=== PATIENT | male | born 1990 | race African-American/Black ===

== ENCOUNTER → 2017-01-03 | Outpatient (CLI) | payer OTHER ==
[~2017-01-03] MED LIST: GASTROGRAFIN SOLUTION 30ML (Q9963) As Ordered ONE; ISOVUE-370 76% 100ML VIAL (Q9967) As Ordered ONE
--- NOTE | 2017-01-03 14:29 | REP ---
CT of the abdomen and pelvis with IV and bowel contrast: There are no comparison studies. The visualized lung santa are unremarkable. The hepatic parenchyma, gallbladder, pancreas and spleen are normal size and unremarkable. The adrenals, kidneys and abdominal aorta are unremarkable. There is no bowel distension or obstruction. The mesentery is unremarkable. Pelvis: The appendix has a normal appearance. There is no ascites or adenopathy. The pelvic bowel loops are unremarkable. Impression: Essentially negative CT study of the abdomen and pelvis. Signed by Edwin Cantrell MD 01/03/2017 02:21 P
== END ==
LOC: M RAD 12:09
PROVIDERS: ATTEND Physician Assistant
DX: R10.84 Generalized abdominal pain (principal)

== ENCOUNTER → 2017-01-03 | Outpatient (CLI) | payer OTHER ==
--- NOTE | 2017-01-03 11:33 | REP ---
KUB: Two views presented. HISTORY: Abdomen pain. FINDINGS: Two supine films are presented. Comparison study May 27, 2015. Today's view show a normal bowel gas pattern. Flank stripes and psoas margins are intact. No large or small bowel dilation is seen. No pathologic calcification, mass or organomegaly seen. IMPRESSION: Negative KUB. Normal bowel gas pattern. Signed by Arnold Garcia MD 01/03/2017 02:18 P
[2017-01-03 12:32] LABS: MEAN CORPUSCULAR HEMOGLOBIN 29.2 pg (27.0-33.0); MEAN CORPUSCULAR HGB CONC 33.1 g/dl (32.0-36.5); MEAN CORPUSCULAR VOLUME 88.2 fl (80.0-96.0); RED CELL DISTRIBUTION WIDTH 13.2 % (11.5-14.5); WHITE BLOOD COUNT 6.6 10^3/uL (4.0-10.0)
[2017-01-03 12:40] LABS: CBCMD ORDERED? YES (YES)
[2017-01-03 12:56] LABS: BASOPHILS 1 % (0-4)
[2017-01-03 13:16] LABS: ALBUMIN 4.5 GM/DL (3.2-5.2); ALKALINE PHOSPHATASE 67 U/L (45-117); ALT/SGPT 28 U/L (12-78); AMYLASE 74 U/L (25-115); ANION GAP 8 MEQ/L (8-16); AST/SGOT 14 U/L (15-37); BILIRUBIN,TOTAL 0.5 MG/DL (0.2-1.0); BLOOD UREA NITROGEN 8 MG/DL (7-18); CALCIUM LEVEL 9.7 MG/DL (8.5-10.1); CARBON DIOXIDE LEVEL 28 MEQ/L (21-32); CHLORIDE LEVEL 106 MEQ/L (98-107); CREATININE FOR GFR 1.26 MG/DL (0.70-1.30); GLOMERULAR FILTRATION RATE > 60.0 (>60); GLUCOSE, FASTING 99 MG/DL (70-105); SODIUM LEVEL 142 MEQ/L (136-145); TOTAL PROTEIN 7.5 GM/DL (6.4-8.2)
== END ==
LOC: M WUC 10:57
PROVIDERS: ATTEND Physician Assistant
DX: R10.84 Generalized abdominal pain (principal)

== ENCOUNTER 2018-01-28 13:43 | Outpatient (RCR) | payer OTHER | END 2018-02-08 | LOC: M PT 13:43 | DX: Z98.890 Other specified postprocedural states (principal) ==

== ENCOUNTER → 2018-02-13 | Outpatient (REF) | payer OTHER ==
[2018-02-13 11:40] LABS: BASO % 0.5 % (0.0-1.0); EOS # 0.2 10^3/uL (0.0-0.50); HEMATOCRIT 41.7 % (42.0-52.0); HEMOGLOBIN 13.4 g/dl (13.5-17.5); IMMATURE GRANULOCYTE % 0.2 % (0-3.0); LYMPH # 2.2 10^3/uL (1.5-6.5); LYMPH % 34.7 % (24.0-44.0); MEAN CORPUSCULAR HEMOGLOBIN 28.3 pg (27.0-33.0); MEAN CORPUSCULAR HGB CONC 32.1 g/dl (32.0-36.5); MONO # 0.5 10^3/uL (0.0-0.8); MONO % 8.2 % (0.0-5.0); NEUTROPHILS # 3.4 10^3/uL (1.8-7.7); NEUTROPHILS % 53.4 % (36.0-66.0); PLATELET COUNT, AUTOMATED 306 10^3/uL (150-450); RED BLOOD COUNT 4.74 10^6/uL (4.30-6.10); RED CELL DISTRIBUTION WIDTH 12.9 % (11.5-14.5); WHITE BLOOD COUNT 6.3 10^3/uL (4.0-10.0)
[2018-02-13 12:01] LABS: ESTIMATED AVERAGE GLUCOSE 131 MG/DL (60-110); HEMOGLOBIN A1c 6.2 %
[2018-02-13 12:09] LABS: ALBUMIN 4.3 GM/DL (3.2-5.2); ALBUMIN/GLOBULIN RATIO 1.34 (1.00-1.93); ALKALINE PHOSPHATASE 84 U/L (45-117); ALT/SGPT 26 U/L (12-78); ANION GAP 7 MEQ/L (8-16); AST/SGOT 13 U/L (7-37); BLOOD UREA NITROGEN 16 MG/DL (7-18); CALCIUM LEVEL 9.4 MG/DL (8.5-10.1); CARBON DIOXIDE LEVEL 26 MEQ/L (21-32); CHLORIDE LEVEL 107 MEQ/L (98-107); CHOLESTEROL LEVEL 236 MG/DL (<200); CHOLESTEROL RISK RATIO 5.619 (<5); CREATININE FOR GFR 1.37 MG/DL (0.70-1.30); FREE T4 1.17 NG/DL (0.76-1.46); GLOMERULAR FILTRATION RATE > 60.0 (>60); GLUCOSE, FASTING 95 MG/DL (70-100); HDL CHOLESTEROL 42 MG/DL (>40); LDL CHOLESTEROL 166 MG/DL (<100); NON-HDL-C 194 MG/DL; POTASSIUM SERUM 4.1 MEQ/L (3.5-5.1); SODIUM LEVEL 140 MEQ/L (136-145); TOTAL PROTEIN 7.5 GM/DL (6.4-8.2); TRIGLYCERIDES LEVEL 142 MG/DL (<150)
== END ==
LOC: M SFHCCLAY 07:27
DX: Z13.1 Encounter for screening for diabetes mellitus (principal); E66.9 Obesity, unspecified; L74.510 Primary focal hyperhidrosis, axilla
CPT/HCPCS: 84443

== ENCOUNTER 2018-03-08 14:45 | Outpatient (RCR) | payer OTHER | END 2018-03-11 | LOC: M PT 14:45 | PROVIDERS: ATTEND Orthopaedic Surgery | DX: Z47.89 Encounter for other orthopedic aftercare (principal); Z98.890 Other specified postprocedural states ==

== ENCOUNTER 2018-03-25 14:45 | Outpatient (RCR) | payer OTHER | END 2018-04-11 | LOC: M PT 14:45 | PROVIDERS: ATTEND Orthopaedic Surgery | DX: Z51.89 Encounter for other specified aftercare (principal); Z98.890 Other specified postprocedural states ==

== ENCOUNTER 2018-04-26 13:49 | Outpatient (RCR) | payer OTHER | END 2018-05-09 | LOC: M PT 13:49 | PROVIDERS: ATTEND Orthopaedic Surgery | DX: Z51.89 Encounter for other specified aftercare (principal); Z47.89 Encounter for other orthopedic aftercare ==

== ENCOUNTER → 2018-05-17 | Outpatient (REF) | payer OTHER ==
[2018-05-17 12:08] LABS: HEMOGLOBIN A1c 5.7 %
[2018-05-17 12:26] LABS: BLOOD UREA NITROGEN 13 MG/DL (7-18); CARBON DIOXIDE LEVEL 23 MEQ/L (21-32); CHLORIDE LEVEL 108 MEQ/L (98-107); CHOLESTEROL LEVEL 216 MG/DL (<200); CHOLESTEROL RISK RATIO 5.268 (<5); CREATININE FOR GFR 1.18 MG/DL (0.70-1.30); GLOMERULAR FILTRATION RATE > 60.0 (>60); GLUCOSE, FASTING 101 MG/DL (70-100); HDL CHOLESTEROL 41 MG/DL (>40); LDL CHOLESTEROL 156 MG/DL (<100); NON-HDL-C 175 MG/DL; POTASSIUM SERUM 4.3 MEQ/L (3.5-5.1); SODIUM LEVEL 140 MEQ/L (136-145); TRIGLYCERIDES LEVEL 94 MG/DL (<150)
== END ==
LOC: M SFHCCLAY 07:59
PROVIDERS: ATTEND Nurse Practitioner Family
DX: R73.03 Prediabetes (principal); E78.49 Other hyperlipidemia

== ENCOUNTER 2018-05-24 14:39 | Outpatient (RCR) | payer OTHER ==
[2018-05-31] MEDS ORDERED: VIBE1TAB2 PO (17:44)
[2018-05-31] MEDS ORDERED: IBUP-1022 PO (18:54)
== END 2018-06-09 ==
LOC: M PT 14:39
PROVIDERS: ATTEND Physical Medicine & Rehabilitation Neuromuscular Medicine
DX: Z51.89 Encounter for other specified aftercare (principal); M54.12 Radiculopathy, cervical region

== ENCOUNTER 2018-05-31 17:37 | Emergency (ER) | payer OTHER ==
[~2018-05-31] VITALS: Ht 177.8 cm; Wt 110.5 kg
[2018-05-31 17:38] VITALS: BP 154/86
[2018-05-31] MEDS ORDERED: VIBE1TAB2 PO (17:44)
[2018-05-31] MEDS ORDERED: IBUP-1022 PO (18:54)
--- NOTE | 2018-05-31 21:59 | REP ---
LEFT SHOULDER, THREE VIEWS: There is no evidence of an acute fracture, dislocation or intrinsic bone disease. IMPRESSION: No fracture or dislocation. Electronically Signed by Edwin Shaffer MD 06/01/2018 06:46 P
== END 2018-05-31 19:14 | disposition home or self-care (01) ==
LOC: M ED 17:37
DX: S43.402A Unspecified sprain of left shoulder joint, initial encounter (principal); S40.012A Contusion of left shoulder, initial encounter; W19.XXXA Unspecified fall, initial encounter; Y92.149 Unspecified place in prison as the place of occurrence of the external cause; Y93.89 Activity, other specified; Y99.0 Civilian activity done for income or pay; K58.9 Irritable bowel syndrome, unspecified; Z79.899 Other long term (current) drug therapy; Z88.0 Allergy status to penicillin

== ENCOUNTER → 2018-09-23 | Outpatient (REF) | payer OTHER ==
[~2018-09-23] MED LIST changes: -GASTROGRAFIN SOLUTION 30ML (Q9963) As Ordered ONE; +IBUP-1022 PO; -ISOVUE-370 76% 100ML VIAL (Q9967) As Ordered ONE; +VIBE1TAB2 PO
[2018-09-23 17:12] LABS: BLOOD UREA NITROGEN 12 MG/DL (7-18); CARBON DIOXIDE LEVEL 25 MEQ/L (21-32); CHLORIDE LEVEL 107 MEQ/L (98-107); CHOLESTEROL LEVEL 217 MG/DL (<200); CHOLESTEROL RISK RATIO 4.254 (<5); CREATININE FOR GFR 1.27 MG/DL (0.70-1.30); GLOMERULAR FILTRATION RATE > 60.0 (>60); GLUCOSE, FASTING 94 MG/DL (70-100); HDL CHOLESTEROL 51 MG/DL (>40); LDL CHOLESTEROL 148 MG/DL (<100); NON-HDL-C 166 MG/DL; POTASSIUM SERUM 3.9 MEQ/L (3.5-5.1); SODIUM LEVEL 141 MEQ/L (136-145); TRIGLYCERIDES LEVEL 89 MG/DL (<150)
== END ==
LOC: M SFHCCLAY 12:48
PROVIDERS: ATTEND Nurse Practitioner Family
DX: R73.03 Prediabetes (principal); E78.49 Other hyperlipidemia

== ENCOUNTER → 2019-03-07 | Outpatient (REF) | payer OTHER ==
[2019-03-07 16:53] LABS: BLOOD UREA NITROGEN 13 MG/DL (7-18); CALCIUM LEVEL 9.5 MG/DL (8.5-10.1); CARBON DIOXIDE LEVEL 25 MEQ/L (21-32); CHLORIDE LEVEL 108 MEQ/L (98-107); CREATININE FOR GFR 1.19 MG/DL (0.70-1.30); GLOMERULAR FILTRATION RATE > 60.0 (>60); GLUCOSE, FASTING 82 MG/DL (70-100); POTASSIUM SERUM 4.2 MEQ/L (3.5-5.1); SODIUM LEVEL 140 MEQ/L (136-145)
[2019-03-07 17:27] LABS: HEMOGLOBIN A1c 5.9 %
== END ==
LOC: M SFHCCLAY 09:54
PROVIDERS: ATTEND Nurse Practitioner Family
DX: R73.03 Prediabetes (principal); E78.49 Other hyperlipidemia

== ENCOUNTER 2019-05-04 15:20 | Emergency (ER) | payer OTHER ==
[~2019-05-04] VITALS: Ht 180.3 cm; Wt 113.0 kg
[2019-05-04] MEDS ORDERED: GABA-843 (15:35)
[2019-05-04] MEDS ORDERED: RALTEGRAVIR 400 MG TAB (ISENTRESS) PO ONE (16:00)
[2019-05-04] MEDS ORDERED: EXPOSURE KIT-ADULT 7 DAY SUPPLY PO ONE (16:00)
[2019-05-04] MEDS ORDERED: TRUVADA 200MG/300MG TABLET PO ONE (16:00)
[2019-05-04 16:11] LABS: BASO % 0.4 % (0.0-1.0); EOS # 0.1 10^3/uL (0.0-0.5); EOS % 0.8 % (0.0-3.0); HEMATOCRIT 41.1 % (42.0-52.0); HEMOGLOBIN 13.6 g/dl (13.5-17.5); LYMPH # 2.3 10^3/uL (1.5-5.0); LYMPH % 22.1 % (24.0-44.0); MEAN CORPUSCULAR HEMOGLOBIN 28.8 pg (27.0-33.0); MEAN CORPUSCULAR HGB CONC 33.1 g/dl (32.0-36.5); MEAN CORPUSCULAR VOLUME 86.9 fl (80.0-96.0); MONO # 0.7 10^3/uL (0.0-0.8); MONO % 6.4 % (0.0-5.0); NEUTROPHILS # 7.4 10^3/uL (1.5-8.5); NEUTROPHILS % 70.1 % (36.0-66.0); PLATELET COUNT, AUTOMATED 351 10^3/uL (150-450); RED BLOOD COUNT 4.73 10^6/uL (4.30-6.10); WHITE BLOOD COUNT 10.6 10^3/uL (4.0-10.0)
[2019-05-04 16:33] LABS: ALBUMIN 4.5 GM/DL (3.2-5.2); ALT/SGPT 38 U/L (12-78); BILIRUBIN,TOTAL 0.5 MG/DL (0.2-1.0); BLOOD UREA NITROGEN 13 MG/DL (7-18); CALCIUM LEVEL 9.7 MG/DL (8.5-10.1); CARBON DIOXIDE LEVEL 25 MEQ/L (21-32); CHLORIDE LEVEL 108 MEQ/L (98-107); CREATININE FOR GFR 1.22 MG/DL (0.70-1.30); GLOMERULAR FILTRATION RATE > 60.0 (>60); GLUCOSE, FASTING 95 MG/DL (70-100); POTASSIUM SERUM 3.6 MEQ/L (3.5-5.1); SODIUM LEVEL 139 MEQ/L (136-145); TOTAL PROTEIN 7.8 GM/DL (6.4-8.2)
[2019-05-04] MEDS ORDERED: TRUVTAB PO (16:59)
[2019-05-04] MEDS ORDERED: RALT40TA PO (16:59)
[2019-05-04 17:08] VITALS: BP 134/78
[2019-05-05] MEDS ORDERED: TRUVADA 200MG/300MG TABLET PO SCH
[2019-05-05] MEDS ORDERED: RALTEGRAVIR 400 MG TAB (ISENTRESS) PO SCH
[2019-05-05 10:18] LABS: HEPATITIS B SURFACE ANTIBODY NEGATIVE (POSITIVE)
[2019-05-05 10:28] LABS: HEPATITIS B SURFACE ANTIGEN NEGATIVE (NEGATIVE)
[2019-05-05 10:57] LABS: HEPATITIS C VIRUS ABY INDEX < 0.0 INDEX (<0.8); HIV 1&2 SCREEN CENTAUR NEGATIVE (NEGATIVE)
== END 2019-05-04 17:11 | disposition home or self-care (01) ==
LOC: M ED 15:20
DX: Z77.21 Contact with and (suspected) exposure to potentially hazardous body fluids (principal); Z88.0 Allergy status to penicillin

== ENCOUNTER → 2019-08-14 | Outpatient (REF) | payer OTHER ==
[~2019-08-14] MED LIST changes: +GABA-843; +RALT40TA PO; +TRUVTAB PO
[2019-08-14 13:21] LABS: ALBUMIN 4.1 GM/DL (3.2-5.2); ALT/SGPT 36 U/L (12-78); BLOOD UREA NITROGEN 10 MG/DL (7-18); CALCIUM LEVEL 9.2 MG/DL (8.5-10.1); CARBON DIOXIDE LEVEL 29 MEQ/L (21-32); CHLORIDE LEVEL 107 MEQ/L (98-107); CHOLESTEROL LEVEL 205 MG/DL (<200); CHOLESTEROL RISK RATIO 4.183 (<5); CREATININE FOR GFR 1.31 MG/DL (0.70-1.30); GLOMERULAR FILTRATION RATE > 60.0 (>60); GLUCOSE, FASTING 94 MG/DL (70-100); HDL CHOLESTEROL 49 MG/DL (>40); LDL CHOLESTEROL 137 MG/DL (<100); NON-HDL-C 156 MG/DL; POTASSIUM SERUM 4.1 MEQ/L (3.5-5.1); SODIUM LEVEL 142 MEQ/L (136-145); TOTAL PROTEIN 7.4 GM/DL (6.4-8.2); TRIGLYCERIDES LEVEL 96 MG/DL (<150)
[2019-08-14 14:05] LABS: HEMOGLOBIN A1c 5.6 %
== END ==
LOC: M SFHCCLAY 07:05
PROVIDERS: ATTEND Nurse Practitioner Family
DX: R73.03 Prediabetes (principal); R61 Generalized hyperhidrosis; E78.49 Other hyperlipidemia

== ENCOUNTER → 2021-04-26 | Outpatient (REF) | payer OTHER ==
[~2021-04-26] MED LIST changes: +EMTR1TAB16 PO; +GABA-282; -GABA-843; -TRUVTAB PO
[2021-04-26 12:35] LABS: ALBUMIN 4.2 GM/DL (3.2-5.2); ALT/SGPT 35 U/L (12-78); BILIRUBIN,TOTAL 0.5 MG/DL (0.2-1.0); BLOOD UREA NITROGEN 11 MG/DL (7-18); CALCIUM LEVEL 9.9 MG/DL (8.5-10.1); CARBON DIOXIDE LEVEL 25 MEQ/L (21-32); CHLORIDE LEVEL 107 MEQ/L (98-107); CREATININE FOR GFR 1.21 MG/DL (0.70-1.30); GLOMERULAR FILTRATION RATE > 60.0 (>60); GLUCOSE, FASTING 90 MG/DL (70-100); POTASSIUM SERUM 4.3 MEQ/L (3.5-5.1); SODIUM LEVEL 140 MEQ/L (136-145); TOTAL PROTEIN 7.4 GM/DL (6.4-8.2)
[2021-04-26 12:46] LABS: HEMOGLOBIN A1c 5.5 %
== END ==
LOC: M SFHCCLAY 07:06
PROVIDERS: ATTEND Nurse Practitioner Family
DX: R73.03 Prediabetes (principal); R61 Generalized hyperhidrosis; E78.49 Other hyperlipidemia